=== PATIENT | female | born 1950 | race Caucasian/White ===

== ENCOUNTER 2018-07-04 08:50 | Outpatient (CLI) | payer MEDICARE, BC ==
--- NOTE | 2018-07-05 11:43 | NM ---
NUCLEAR MEDICINE I123 THYROID SCAN AND UPTAKE: History: 68-year-old female with history of thyrotoxicosis, hyperparathyroidism. FINDINGS: Patient was given 0.246 mCi I123 Iodine orally. 6-hour uptake = 14.5%. 24-hour uptake = 38.7%. Anterior GRIMES and LEOLA views of the thyroid gland are performed. The right and left lobes appear within normal limits. No hot or cold nodules. IMPRESSION: Minimally elevated 24-hour uptake. Normal thyroid gland without hot or cold nodule. POS: ALFONSO
== END 2018-07-04 08:51 | disposition home or self-care (01) ==
LOC: NM 08:50
PROVIDERS: ATTEND Internal Medicine
DX: E05.90 Thyrotoxicosis, unspecified without thyrotoxic crisis or storm (principal); E05.00 Thyrotoxicosis with diffuse goiter without thyrotoxic crisis or storm
CPT/HCPCS: 78014; A9516

== ENCOUNTER 2019-07-05 15:14 | Outpatient (CLI) | payer MEDICARE, BC ==
--- NOTE | 2019-07-05 16:41 | MMO ---
Bilateral MAMMO Bilat Screen [facility]. CLINICAL HISTORY: Patient is 69 years old and is seen for screening. The patient has no family history of breast cancer. The patient has no personal history of cancer. VIEWS: The views performed were: bilateral craniocaudal with tomosynthesis and bilateral mediolateral oblique with tomosynthesis. FILMS COMPARED: The present examination has been compared to prior imaging studies performed at on 12/18/2007 and 05/23/2013. This study has been interpreted with the assistance of computer-aided detection. MAMMOGRAM FINDINGS: The breasts are almost entirely fat. There are stable benign appearing calcifications seen in both breasts. There are no suspicious masses, calcifications or areas of architectural distortion. There are no suspicious masses, suspicious calcifications, or new areas of architectural distortion. IMPRESSION: THERE IS NO MAMMOGRAPHIC EVIDENCE OF MALIGNANCY. A ROUTINE FOLLOW-UP MAMMOGRAM IN 1 YEAR IS RECOMMENDED. THE RESULTS OF THIS EXAM WERE SENT TO THE PATIENT. ACR BI-RADS Category 2 - Benign finding MAMMOGRAPHY NOTE: 1. A negative mammogram report should not delay a biopsy if a dominant of clinically suspicious mass is present. 2. Approximately 10% to 15% of breast cancers are not detected by mammography. 3. Adenosis and dense breasts may obscure an underlying neoplasm. Reported by: SURI SOUZA MD Electonically Signed: [id number]
== END 2019-07-05 15:15 | disposition home or self-care (01) ==
LOC: BICMAMMO 15:14
PROVIDERS: ATTEND Internal Medicine
DX: Z12.31 Encounter for screening mammogram for malignant neoplasm of breast (principal)
CPT/HCPCS: 77063; 77067

== ENCOUNTER 2019-08-31 06:55 | Day surgery (SDC) | payer MEDICARE, BC ==
[2019-08-30 11:49] VITALS: BMI 51.5
[2019-08-31] MEDS ORDERED: Lidocaine 1% PF 5 ML VIAL ONE (10:48)
[2019-08-31] MEDS ORDERED: PROPOFOL 200 MG/20 ML VIAL ONE (10:48)
--- NOTE | 2019-09-02 13:09 | OP ---
DATE OF PROCEDURE: 08/31/2019 PREPROCEDURE DIAGNOSES: 1. Colorectal cancer screening. Last colonoscopy 10 years ago, normal. 2. History of cyst with polyps, that get removed every 3 to 5 years, she has never had surgery. 3. No family history of colon cancer. POSTPROCEDURE DIAGNOSES: 1. Four diminutive polyps located in the cecum, hepatic flexure, descending and sigmoid colon, all less than 5 mm in size, removed by cold snare polypectomy and submitted to Pathology. 2. Otherwise normal colonoscopy. RECOMMENDATIONS: 1. Repeat colonoscopy in 5 years. 2. Await pathology. PROCEDURE IN DETAIL: After the patient was informed of the risks, benefits, and possible complications of endoscopy including perforation, bleeding, reaction to medication, and aspiration, informed consent was obtained. The patient was brought to the endoscopy suite, where she was sedated in gradual fashion. Once she was comfortable, rectal examination was performed, which was normal. The endoscope was advanced to the anal canal through the colon to the cecum, which was identified by the appendiceal orifice and ileocecal valve. The prep was good. The patient tolerated the procedure well. The scope was then slowly removed with good visualization of the mucosa. Four small polyps were found, one in the cecum, one at the hepatic flexure, one in descending, one in the sigmoid. They were all about 3 to 4 mm in size and flat. They were all removed by cold snare polypectomy. There was good hemostasis. There were no other lesions seen. Retroflexed views in the rectum were normal. Scope was removed. The patient tolerated the procedure well. There were no complications. Job ID: [id number]
== END 2019-08-31 10:45 | disposition home or self-care (01) ==
LOC: SDC 06:55
PROVIDERS: ATTEND Internal Medicine Gastroenterology
PROC: 0DBH8ZX Excision of Cecum, Via Natural or Artificial Opening Endoscopic, Diagnostic (ICD-10-PCS; principal; 2019-08-31)
PROC: 0DBL8ZX Excision of Transverse Colon, Via Natural or Artificial Opening Endoscopic, Diagnostic (ICD-10-PCS; 2019-08-31)
PROC: 0DBN8ZZ Excision of Sigmoid Colon, Via Natural or Artificial Opening Endoscopic (ICD-10-PCS; 2019-08-31)
PROC: 0DBM8ZX Excision of Descending Colon, Via Natural or Artificial Opening Endoscopic, Diagnostic (ICD-10-PCS; 2019-08-31)
DX: Z12.11 Encounter for screening for malignant neoplasm of colon (principal); D12.0 Benign neoplasm of cecum; D12.3 Benign neoplasm of transverse colon; D12.4 Benign neoplasm of descending colon; D12.5 Benign neoplasm of sigmoid colon; E11.9 Type 2 diabetes mellitus without complications; I10 Essential (primary) hypertension; E05.90 Thyrotoxicosis, unspecified without thyrotoxic crisis or storm; M06.9 Rheumatoid arthritis, unspecified; Z83.71 Family history of colonic polyps; Z79.4 Long term (current) use of insulin; Z79.899 Other long term (current) drug therapy; Z88.6 Allergy status to analgesic agent; Z88.8 Allergy status to other drugs, medicaments and biological substances
CPT/HCPCS: 88305; J2001; J2704

== ENCOUNTER 2021-07-23 11:25 | Outpatient (CLI) | payer MEDICARE, BC | END 2021-07-23 11:26 | disposition home or self-care (01) | LOC: BICRAD 11:25 | PROVIDERS: ATTEND Internal Medicine Rheumatology | DX: M25.561 Pain in right knee (principal); M25.562 Pain in left knee; M17.0 Bilateral primary osteoarthritis of knee ==